=== PATIENT | male | born 1950 ===

== ENCOUNTER → 2018-11-18 22:22 | Outpatient (REF) | payer MEDICARE, OTHER, SELFPAY ==
[2018-11-19 00:24] LABS: BUN Creatinine Ratio 20.8 (6-22); Blood Urea Nitrogen 27 mg/dL (9-20); Calcium 9.6 mg/dL (8.4-10.2); Carbon Dioxide 30 mmol/L (22-32); Chloride 100 mmol/L (98-107); Estimated Glomerular Filt Rate 54.6 mL/min (>60); Glucose 94 mg/dL (80-110); HEMOLYSIS < 15 (0-50); Potassium 4.9 mmol/L (3.4-5.1); Sodium 139 mmol/L (137-145)
== END ==
LOC: LAB 22:22
PROVIDERS: Visit Provider Naturopath
DX: I10 Essential (primary) hypertension (principal); G37.8 Other specified demyelinating diseases of central nervous system; M54.2 Cervicalgia
CPT/HCPCS: 36415; 80048

== ENCOUNTER → 2018-12-31 21:03 | Outpatient (ROUT) | payer MEDICARE, SELFPAY ==
[2019-01-01 01:03] LABS: Alanine Aminotransferase 26 IU/L (21-72); Albumin 4.1 g/dL (3.5-5.0); Albumin Globulin Ratio 1.4 (1.0-2.8); Alkaline Phosphatase 53 U/L (38-126); Aspartate Aminotransferase 22 IU/L (17-59); BUN Creatinine Ratio 16.7 (6-22); Bilirubin Total 0.5 mg/dL (0.2-1.3); Blood Urea Nitrogen 20 mg/dL (9-20); Carbon Dioxide 29 mmol/L (22-32); Chloride 99 mmol/L (98-107); Estimated Glomerular Filt Rate 59.9 mL/min (>60); Globulin 2.9 g/dL (1.7-4.1); Glucose 99 mg/dL (80-110); HEMOLYSIS < 15 (0-50); Potassium 4.4 mmol/L (3.4-5.1); Sodium 137 mmol/L (137-145)
== END ==
PROVIDERS: Visit Provider Naturopath
DX: I10 Essential (primary) hypertension (principal); N28.9 Disorder of kidney and ureter, unspecified; G37.8 Other specified demyelinating diseases of central nervous system
CPT/HCPCS: 36415; 80053